=== PATIENT | female | born 1980 | race Caucasian/White ===

== ENCOUNTER 2019-01-04 00:14 | Inpatient (IN) | payer BC ==
[~2019-01-04] VITALS: Ht 167.6 cm; Wt 81.0 kg
[~2019-01-04 00:14] MED LIST: LEVOTHYROXINE50 MCG PO; PRENATAL CAPSU1 EACH PO
--- NOTE | 2019-01-04 09:33 | PR ---
[facility] [address] [facility] [address] [place], [place] [address] Signed Progress Notes IP Datetime Report Generated by VERÓNICA: 01/04/2019 09:33 PROGRESS NOTES: [id number] Impression: Normal progression of labor Procedures: Artificial ROM; Sterile Vag Exam Plan: Continue present management Informed Consent Obtain: Vaginal Delivery; Induction of Labor; Risks, Benefits and Alternatives Discussed VITAL SIGNS: [id number] Vital Signs: Reviewed VS Notable Details: intermittent mild HTN EXAM: [id number] Dilatation: 3.5 Effacement: 75 Station: -2 Uterine Contractions: irregular MEMBRANES: [id number] Membrane Status: Intact ROM Note: AROM with copious clear fluid seen Comments: Progressing. Will continue. Fetus A: [id number] FHR Baseline: 145 Variability: Moderate 6-25bpm Accelerations: 10X10 Decelerations: None FHR Category: Category I Presentation: Vertex Comments on Fetus A: No evidence of metabolic acidosis Fetus B: [id number] Signing Physician: Latesha Centeno MD Copies: ~ *Electronically Signed* 01/04/19 0933 LATESHA CENTENO MD PATIENT NAME: LETICIA TIMMONS PROGRESS NOTE DATE OF : 82 PHYSICIAN: LATESHA CENTENO MD RPT #: [id number] REPORT IS CONFIDENTIAL AND NOT TO BE RELEASED WITHOUT AUTHORIZATION
--- NOTE | 2019-01-04 13:58 | NUR ---
MET WITH PT'S CECIL AND SAW THEIR BRAND NEW DAUGHTER. CECIL STILL ANXIOUS WAITING FOR NEWS OF PT-EMERGENCY HAS HIM SOMEWHAT ANXIOUS. HE STATED HE WILL FEEL BETTER WHEN SHE IS AWAKE. EXTENDED A BLESSING, AND HE REQUESTED I CONTACT PT'S SIS AND GIVE HER AN UPDATE. WILL FOLLOW NEEDED
--- NOTE | 2019-01-04 14:16 | NUR ---
01/04/19 1416 Gerri Sandoval 1357- PT ARRIVES TO PACU WITH AN OPA IN PLACE AND A JAW THRUST BY DARRYN GONZALEZ CRNA. PT ON 6L VIA MASK. RESP EVEN AND UNLABORED. OXYGEN SAT 100% ON THE 6L VIA MASK. 1358- PT IS GRIMACING AND TRYING TO PUSH OUT OPA. PT INSTRUCTED TO OPEN MOUTH BY OCTAVIANO FRANCIS. PT IS ABLE TO DO THIS AND OPA REMOVED. 1400- PT WILL OPEN EYES WHEN BEING TALKED TO. NYSTAGMUS PRESENT. 1405- PT EDUCATED THAT SHE IS IN THE RECOVERY ROOM AND THAT HER BABY IS DOING WELL. PT NODS, NYSTAGMUS REMAINS PRESENT.
--- NOTE | 2019-01-05 07:36 | PR ---
[facility] [address] [facility] [place], [place] [address] Signed PP Progress Notes Datetime Report Generated by VERÓNICA: 01/05/2019 07:36 SUBJECTIVE: [id number] Pain: Within normal limits Nausea/Vomiting: Denies Flatus: Yes Vital Signs: [id number] Vital Signs: Reviewed; Within Normal Limits EXAM: [id number] Cardiovascular: Normal Respiratory: Normal Abdomen/Uterus: Abnormal Lochia: Normal Vulva/Perineum: Not Done Breasts: Not Done CVA Tenderness: Not Done Extremities: Normal Incision: Normal Progress: Normal Exam Comments: Abdomen with active BS. Fundus firm, NT @ U-1. H/H 10.6/30.6, WBC 10.9, plat 166k IMPRESSION/PLAN/PROCEDURES: [id number] Impression: Normal progression Other Plans: Ambulate, D/C mcbride, shower Procedures: None Progress Notes: Doing well. Signing Physician: Latesha Centeno MD Copies: ~ *Electronically Signed* 01/05/19 0736 LATESHA CENTENO MD PATIENT NAME: LETICIA TIMMONS [facility] PROGRESS NOTE DATE OF : 82 PHYSICIAN: LATESHA CENTENO MD RPT #: [id number] REPORT IS CONFIDENTIAL AND NOT TO BE RELEASED WITHOUT AUTHORIZATION
[2019-01-05] MEDS ORDERED: LEVOTHYROXINE75 MCG PO (11:47)
[2019-01-05] MEDS ORDERED: FLUTICASONE PRO16 GM NAS (11:47)
--- NOTE | 2019-01-06 08:17 | PR ---
[facility] [address] [facility] [place], [place] [address] Signed PP Progress Notes Datetime Report Generated by VERÓNICA: 01/06/2019 08:17 SUBJECTIVE: [id number] Pain: Within normal limits Nausea/Vomiting: Denies Flatus: Yes Vital Signs: [id number] Vital Signs: Reviewed; Within Normal Limits EXAM: [id number] Cardiovascular: Not Done Respiratory: Not Done Abdomen/Uterus: Abnormal Lochia: Normal Vulva/Perineum: Not Done Breasts: Not Done CVA Tenderness: Not Done Extremities: Normal Incision: Normal Progress: Normal Exam Comments: Abdomen with active BS. Fundus firm, NT @ U-1. IMPRESSION/PLAN/PROCEDURES: [id number] Impression: Normal progression Plan: Continue present management Other Plans: Ambulate, D/C rae showiain Procedures: None Progress Notes: Doing well. Baby having issues with jaundice. Will continue observation today with probable D/C tomorrow. Signing Physician: Latesha Centeno MD Copies: ~ *Electronically Signed* 01/06/19 0817 LATESHA CENTENO MD PATIENT NAME: IAINLETICIA COWART PROGRESS NOTE DATE OF : 82 PHYSICIAN: LATESHA CENTENO MD RPT #: [id number] REPORT IS CONFIDENTIAL AND NOT TO BE RELEASED WITHOUT AUTHORIZATION
--- NOTE | 2019-01-07 11:41 | PR ---
[facility] [address] [facility] [place], [place] [address] Signed PP Progress Notes Datetime Report Generated by CPNuria: 01/07/2019 11:41 SUBJECTIVE: [id number] Pain: Within normal limits Nausea/Vomiting: Denies Flatus: Yes Vital Signs: [id number] Vital Signs: Reviewed Notable Details: mild HTN EXAM: [id number] Cardiovascular: Normal Respiratory: Normal Abdomen/Uterus: Abnormal Lochia: Normal Vulva/Perineum: Not Done Breasts: Not Done CVA Tenderness: Not Done Extremities: Normal Incision: Normal Progress: Normal Exam Comments: Abdomen with active BS. Fundus firm, NT @ U-1. IMPRESSION/PLAN/PROCEDURES: [id number] Impression: Normal progression; Induced Hypertension Plan: Remove dez; Discharge Other Plans: Ambulate, D/C mcbride, shower Procedures: None Progress Notes: Doing well though BPs still on the high side. Will D/C to boarder status today. Signing Physician: Latesha Centeno MD Copies: ~ *Electronically Signed* 01/07/19 1141 LATESHA CENTENO MD PATIENT NAME: LETICIA TIMMONS PROGRESS NOTE DATE OF : 82 PHYSICIAN: LATESHA CENTENO MD RPT #: [id number] REPORT IS CONFIDENTIAL AND NOT TO BE RELEASED WITHOUT AUTHORIZATION
--- NOTE | 2019-01-07 13:33 | NUR ---
PT SITTING IN CHAIR, HOLDING BABY. BABY JUST ALITTLE JAUNDICE, WILL BE HERE UNTIL AT LEAST TOMORROW. PLEASANT VISIT, PT STATED SHE IS STARTING TO FEEL BETTER FROM C-[place]CTON. OTHER CHILDREN HAVE ALL BEEN VAGINAL BIRTHS. PT REQUESTED PRAYER, AND WOULD LIKE TO SEE IF POSSILE. WAS UNABLE TO GET WORD TO BEFORE HE LEFT. WILL HAVE HIM COME TOMORROW. WILL FOLLOW NEEDED
--- NOTE | 2019-01-09 09:07 | OR ---
[facility] [address] [place], [place] [address] Signed DATE OF OPERATION: 01/04/2019 SURGEON: Latesha Centeno MD [employer]INTENANCE: Justo Nesbitt MD PREOPERATIVE DIAGNOSES: Term , grand multiparity, preeclampsia, prolapsed cord. POSTOPERATIVE DIAGNOSES: 1. Term , grand multiparity, preeclampsia, prolapsed cord. 2. Delivered. PROCEDURE PERFORMED: Primary section with low segment transverse uterine incision. ANESTHESIA: General ET. ESTIMATED BLOOD LOSS: 700 mL. DRAINS: Torres catheter. INDICATIONS AND FINDINGS: The patient is a 38-year-old female, 13, para six, SAB six, who was admitted at 38 and 3/7th weeks for induction secondary to preeclampsia without severe features. 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 She also received one dose of Cytotec. At that point, artificial rupture of membranes was carried out when she was approximately 3.5 cm dilated. The head was initially well applied to the cervix, but following rupture, which was productive of a large amount of fluid, the baby's head did become quite a bit higher and a little bit more lateral. heart tones were very reactive and reassuring. After some time in bed, she was allowed to ambulate and baby continued to look good. She then progressed to about 4.5 cm dilation, at which point she began having more variables with the contractions. Her position was changed and the variables would resolve and then recur again necessitating frequent position changes. She was rechecked at that point, and she was found to be probably about 5 cm, but there was an obvious cord presenting Electronically Signed By: LATESHA CENTENO MD 01/09/19 0907 PATIENT NAME: LETICIA TIMMONS OPERATIVE REPORT DATE OF : 82 REPORT #: [id number] PHYSICIAN: LATESHA CENTENO MD PCP: LATESHA CENTENO MD REPORT IS CONFIDENTIAL AND NOT TO BE RELEASED WITHOUT AUTHORIZATION [facility] [address] [place], [place] [address] Signed with the head. It was felt that we had a prolapsed cord and that immediate surgical delivery was indicated. She was consented and taken to the operating room, where she was delivered of a little girl via lower segment transverse uterine incision from the ROT position with Apgars of 7 and 9 and weight that is pending. There was a cord noted above the head. The uterus, tubes, ovaries, and placenta otherwise appeared normal. DESCRIPTION OF PROCEDURE: The patient was prepped and draped in the supine position. A Pfannenstiel skin incision was made and carried down through the fascia. The incision was extended laterally. The inferior and superior fascial flaps were created. The muscles were bluntly divided. The peritoneum opened bluntly and the incision extended. The Alon retractor was placed and the incision on the uterus was made at the upper aspect of the peritoneal reflection. The baby was delivered with the above findings and handed off to the pediatric staff in attendance. Following this, the placenta was removed manually and the uterus explored with a lap tape assuring no remaining fragments. The edges of the incision were identified and closed with two layers of #0 Monocryl. The first layer was a running locking stitch and the second was a vertical imbricating stitch. Additional [id number] was required near the left angle for control of bleeding. The abdomen was then copiously irrigated and inspected and bleeding points controlled and preparations made for closure. The retractor was removed and the peritoneum identified. The lower segment was re-examined and an ACell graft was placed to aid in healing. The peritoneum was then closed with a running suture of 3-0 Vicryl. The muscles were brought together with interrupted sutures of 0 Vicryl. Bleeding points were controlled with cautery as well as some [id number] sutures of 0 Vicryl. There was also some bleeding from a little fat pad that was just below the lower aspect of the muscles and this was controlled with free ties of 2-0 chromic. This layer was then irrigated and inspected and good hemostasis was noted. ACell powder was sprinkled over this layer to aid in healing. The fascia was then closed from each angle to the midline with a running suture of 0 Vicryl. The subcutaneous tissue was irrigated and bleeding points controlled with cautery. The deep space was closed with interrupted sutures of 3-0 Vicryl. The skin was closed with dez. All sponge and needle counts were correct. She tolerated the procedure well and was taken to the recovery room in good condition. Latesha Centeno MD PJW/MODL /[id number] Electronically Signed By: LATESHA CENTENO MD 01/09/19 0907 PATIENT NAME: LETICIA TIMMONS OPERATIVE REPORT DATE OF : 82 REPORT #: [id number] PHYSICIAN: LATESHA CENTENO MD PCP: LATESHA CENTENO MD REPORT IS CONFIDENTIAL AND NOT TO BE RELEASED WITHOUT AUTHORIZATION [facility] [address] [place], [place] [address] Signed cc: Justo Nesbitt MD Copies: JUSTO NESBITT MD ~ Electronically Signed By: LATESHA CENTENO MD 01/09/19 0907 PATIENT NAME: LETICIA TIMMONS ELISEO OPERATIVE REPORT DATE OF : 82 REPORT #: [id number] PHYSICIAN: LATESHA CENTENO MD PCP: LATESHA CENTENO MD REPORT IS CONFIDENTIAL AND NOT TO BE RELEASED WITHOUT AUTHORIZATION
== END 2019-01-07 17:00 | disposition home or self-care (01) | DRG 788 ==
LOC: FBC 00:14
PROVIDERS: ADMIT Obstetrics & Gynecology
PROC: 10907ZC Drainage of Amniotic Fluid, Therapeutic from Products of Conception, Via Natural or Artificial Opening (ICD-10-PCS; 2019-01-04)
PROC: 3E0P7VZ Introduction of Hormone into Female Reproductive, Via Natural or Artificial Opening (ICD-10-PCS; 2019-01-04)
PROC: 10D00Z1 Extraction of Products of Conception, Low, Open Approach (ICD-10-PCS; principal; 2019-01-04 12:55)
DX: O14.94 Unspecified pre-eclampsia, complicating childbirth (principal); O13.4 Gestational [pregnancy-induced] hypertension without significant proteinuria, complicating childbirth; O69.0XX0 Labor and delivery complicated by prolapse of cord, not applicable or unspecified; Z3A.38 38 weeks gestation of pregnancy; Z37.0 Single live birth; O76 Abnormality in fetal heart rate and rhythm complicating labor and delivery; O99.824 Streptococcus B carrier state complicating childbirth; O32.2XX0 Maternal care for transverse and oblique lie, not applicable or unspecified; O99.284 Endocrine, nutritional and metabolic diseases complicating childbirth; E03.9 Hypothyroidism, unspecified; Z79.899 Other long term (current) drug therapy; Z88.1 Allergy status to other antibiotic agents; Z88.0 Allergy status to penicillin
CPT/HCPCS: 36415; 82803; 85027; C1763; J0330; J1100; J1885; J2250; J2405; J2550; J2590; J2765; J3010; J3370; J7120